=== PATIENT | male | born 1940 | race Caucasian/White ===

== ENCOUNTER 2019-01-23 14:46 | Emergency (ER) | payer MEDICARE, OTHER ==
[~2019-01-23] VITALS: Ht 170.2 cm; Wt 62.7 kg
[2019-01-23 14:54] VITALS: BP 146/81
[2019-01-23] MEDS ORDERED: HYDR-3965 PO (16:40)
== END 2019-01-23 17:48 | disposition home or self-care (01) ==
LOC: ER 14:47
DX: S42.412A Displaced simple supracondylar fracture without intercondylar fracture of left humerus, initial encounter for closed fracture (principal); S51.812A Laceration without foreign body of left forearm, initial encounter; I50.9 Heart failure, unspecified; J44.9 Chronic obstructive pulmonary disease, unspecified; F41.9 Anxiety disorder, unspecified; C61 Malignant neoplasm of prostate; W18.39XA Other fall on same level, initial encounter; Y93.89 Activity, other specified; Y92.89 Other specified places as the place of occurrence of the external cause; Y99.8 Other external cause status
CPT/HCPCS: 12002; 29105; 99284